=== PATIENT | male | born 1950 | race Caucasian/White ===

== ENCOUNTER 2018-03-01 14:50 | Outpatient (CLI) | payer OTHER, BC ==
[~2018-03-01] VITALS: Ht 182.9 cm; Wt 81.6 kg
[~2018-03-01 14:50] MED LIST: CHOL10003 PO; CLIN150C17 PO; COLC0.6T7 PO; DAPS25TA2 PO; HYDR-757 PO; TEST1.25 TOP; [UNRECOGNIZED DRUG - CODE] PO; [UNRECOGNIZED DRUG - CODE] PO; [UNRECOGNIZED DRUG - OTHER] PO
[2018-03-01] MEDS ORDERED: arthritis med PO (15:11)
[2018-03-05] MEDS ORDERED: ACHD5005 PO (15:10)
== END 2018-03-01 15:16 ==
LOC: PREOP 14:50
PROVIDERS: ATTEND Surgery
DX: Z01.818 Encounter for other preprocedural examination (principal); K40.90 Unilateral inguinal hernia, without obstruction or gangrene, not specified as recurrent; D17.9 Benign lipomatous neoplasm, unspecified

== ENCOUNTER 2018-03-05 10:49 | Day surgery (SDC) | payer OTHER, BC ==
[~2018-03-05] VITALS: Ht 182.9 cm; Wt 81.6 kg
[~2018-03-05 10:49] MED LIST changes: +arthritis med PO
[2018-03-05 10:57] VITALS: BP 130/75
[2018-03-05] MEDS ORDERED: ceFAZolin 2 GM IV Premixed 50 ML IV ONE (11:15)
--- NOTE | 2018-03-05 11:24 | Progress Note-Pre Operative ---
Pre-Operative Progress Note H&P Reviewed The H&P was reviewed, patient examined and no changes noted. Date Seen by Provider: Feb 18, 2018 Time Seen by Provider: 16:20 Date H&P Reviewed: Mar 05, 2018 Time H&P Reviewed: 11:23 Pre-Operative Diagnosis: Bilateral Inguinal herniae. Lipoma, nape of neck YAMILETH JOSEPH MD Mar 05, 2018 11:24 am
[2018-03-05] MEDS ORDERED: BUP/EPI 0.5% 1:200,000 (SENSORCAINE) 30 ML VIAL ONE (11:31)
[2018-03-05 11:47] LABS: BASOPHILS % (AUTO) 0 % (0-10); EOSINOPHILS # (AUTO) 0.2 10^3/uL (0.0-0.3); EOSINOPHILS % (AUTO) 4 % (0-10); HEMATOCRIT 44 % (40-54); HEMOGLOBIN 14.7 G/DL (13.3-17.7); LYMPHOCYTES % (AUTO) 19 % (12-44); MEAN CORPUSCULAR HEMOGLOBIN 33 PG (25-34); MEAN CORPUSCULAR HGB CONC 34 G/DL (32-36); MEAN CORPUSCULAR VOLUME 97 FL (80-99); MONOCYTES # (AUTO) 0.6 X 10^3 (0.0-1.0); MONOCYTES % (AUTO) 11 % (0-12); NEUTROPHILS # (AUTO) 3.4 X 10^3 (1.8-7.8); NEUTROPHILS % (AUTO) 66 % (42-75); PLATELET COUNT 157 10^3/uL (130-400); RED BLOOD COUNT 4.49 10^6/uL (4.35-5.85); RED CELL DISTRIBUTION WIDTH 13.3 % (10.0-14.5); WHITE BLOOD COUNT 5.2 10^3/uL (4.3-11.0)
[2018-03-05] MEDS ORDERED: ONDANSETRON 4 MG/2 ML (SDV) Z0FRAN ONE (11:47)
[2018-03-05] MEDS ORDERED: proPOfol 200 MG/20 ML (DIPRIVAN) VIAL IV ONE (11:47)
[2018-03-05] MEDS ORDERED: DEXAMETHASONE 10 MG/ML (DECADRON) 1 ML VIAL ONE (11:47)
[2018-03-05] MEDS ORDERED: LIDOCAINE PF 2% 5 ML (XYLOCAINE) VIAL ONE (11:47)
[2018-03-05] MEDS ORDERED: SEVOFLURANE (ULTANE) 15 ML INHAL SOLN ONE ×13 (11:48→15:08)
[2018-03-05] MEDS ORDERED: MIDAZOLAM 2 MG/2 ML (VERSED) VIAL ONE (11:48)
[2018-03-05] MEDS ORDERED: fentaNYL INJECTION 250 MCG/5 ML AMP ONE (11:48)
[2018-03-05] MEDS ORDERED: ROCURONIUM 10 MG/ML 5 ML SYRINGE IV ONE ×2 (11:48→14:43)
[2018-03-05] MEDS ORDERED: LIDOCAINE JELLY 2% (XYLOCAINE) 5 ML TUBE ONE (11:54)
[2018-03-05] MEDS: LACTATED RINGERS 1,000 ML IV PRN ×3 (11:59→16:03)
[2018-03-05] MEDS ORDERED: LEFL20TA18 PO (12:12)
[2018-03-05] MEDS ORDERED: fentaNYL INJECTION 100 MCG/2 ML AMP ONE (13:06)
[2018-03-05] MEDS ORDERED: MEPERIDINE (DEMEROL) INJ 50 MG/ML IVP PRN (14:45)
[2018-03-05] MEDS ORDERED: ONDANSETRON 4 MG/2 ML (SDV) Z0FRAN IVP PRN (14:45)
[2018-03-05] MEDS ORDERED: diphenhydrAMINE 50 MG/ML INJ (BENADRYL) ONE (14:48)
--- NOTE | 2018-03-05 15:09 | Operative Report ---
Operative Report Date of Procedure/Surgery Mar 05, 2018 Surgeon (s) YAMILETH JOSEPH MD Academic Vice President (s): n/a Post-Operative Diagnosis same Procedure Performed 1. Robotic assisted repair of bilateral inguinal hernia with mesh 2. Excision of 6 cm intermuscular lipomanape of neck Description of Procedure Anesthesia Type: General Estimated blood loss (mL): Minimal Specimen(s) collected/removed Hernia contents. Lipoma from the Neck Description of the Procedure Indication for the procedures: This gentleman initially presented with the large , symptomatic right inguinal hernia. Clinical examination confirmed a contralateral, smaller hernia as well. Therefore, he was offered repair of both herniae using minimally invasive technique with robotic assistance and mesh reinforcement. During the visit, he requested excision of a symptomatic lipoma over the nape of his neck. I agreed to do so. Informed consent was obtained after reviewing the details of the operation and complications of hematoma, infection of the mesh and recurrence of the hernia. Description of the procedures: He was placed supine on the operative table and general anesthesia induced using an endotracheal tube. A gram of Ancef was administered intravenously as prophylaxis against wound infection. Sequential compression devices were placed around his legs, to minimize the risk of venous thrombosis. A Gillespie catheter was placed to decompress the bladder during surgery. It was removed at the end of the operation. 1. Robotic assisted repair of bilateral inguinal herniae: Abdomen was prepared and draped in the usual sterile manner. A supraumbilical incision was made and pneumoperitoneum established using a Veress needle. Intra-abdominal pressure was maintained at 15 mmHg, using carbon dioxide insufflation. A 12 mm trocar was placed and anatomy visualized using the high definition, 3-dimensional laparoscope, associated with da Deena system. A large hernia was identified on the right side of the smaller direct hernia on the left side. Under direct view, I placed an 8 mm trocar over each side of the abdomen and the patient was turned into steep Trendelenburg position, to displace loops of bowel out of the pelvis. The robotic system was then docked in place. I began the dissection on the right side. Peritoneum was incised laterally, entering the pre-peritoneal space. The hernia contents were reduced completely and removed at the end of the operation. Transversalis fascia was rather lax and therefore approximated using 20V LOC sutures with the robotic assistance, without constricting the cord structures. A pre-made polypropylene mesh measuring 16 x 10 cm in size was used for reinforcement. It was secured to Greg's ligament and the anterior abdominal musculature with 2-0 Vicryl sutures with the robotic assistance. Peritoneum was reconstituted using a 20V LOC suture using robotic assistance. On the left side, the hernia mainly contained extraperitoneal fat/lipoma of the cord, which was reduced from the inguinal canal. It pre-made medium sized polypropylene mesh measuring 13 x 8 cm was used for reinforcement. It was secured to Greg's ligament and the anterior abdominal musculature using a 2-0 Vicryl suture. The peritoneum was then reconstituted using a 20V LOC suture with robotic assistance. Pneumoperitoneum was deflated and the fascia over the supraumbilical incision closed using #1 Vicryl. Skin incisions were closed using 4-0 Vicryl, in a subcuticular fashion. 0.5 percent Marcaine with epinephrine was infiltrated along the incisions both preemptively and at the conclusion of the operation. 2. Excision of inter-muscular lipomanape of neck: The patient was placed in left lateral decubitus position and his pressure areas were padded and protected. After establishing preemptive analgesia using 0.5 percent Marcaine with epinephrine, a 6 cm transverse incision was made and the lipoma, which appeared to be intermuscular in nature excised from the muscle layers. Hemostasis was achieved using ligaclips and minimal use of cautery. The area was irrigated with saline and the incision closed using 3-0 Vicryl for the subcutaneous tissue and 4-0 Vicryl for skin, in a subcuticular fashion. He tolerated the procedures well, was turned supine and extubated and taken to the recovery room in a stable condition. Findings of the Procedure see op report Allergies and Home Medications Allergies Coded Allergies: No Known Drug Allergies (Unverified , 02/20/14) Home Medications Leflunomide 20 Mg Tablet, 20 MG PO DAILY, (Reported) Patient Home Medication List Home Medication List Reviewed: Yes YAMILETH JOSEPH MD Mar 05, 2018 3:09 pm
[2018-03-05] MEDS ORDERED: ACHD5005 PO (15:10)
--- NOTE | 2018-03-05 15:11 | Discharge Inst-Simple/Standard ---
Discharge Inst-Standard Discharge Medications New, Converted or Re-Newed RX: RX on Chart Patient Instructions/Follow Up Plan of Care/Instructions/FU: Dressings off in 48 hours. Follow-up in a month Activity as Tolerated: No Goal: No lifting over 10 pounds Discharge Diet: No Restrictions YAMILETH JOSEPH MD Mar 05, 2018 3:11 pm
[2018-03-05] MEDS: morphine INJ 10 MG/ML 1ML (SYR OR VIAL) IVP PRN ×2 (15:34→15:40)
--- NOTE | 2018-03-05 15:45 | Anesthesia-General Post-Op ---
General Patient Condition Mental Status/LOC: Same as Preop Cardiovascular: Satisfactory Nausea/Vomiting: Absent Respiratory: Satisfactory Pain: Controlled Complications: Absent Post Op Complications Complications None Follow Up Care/Instructions Patient Instructions None needed. Anesthesia/Patient Condition Patient Condition Patient is doing well, no complaints, stable vital signs, no apparent adverse anesthesia problems. MART SÁNCHEZ DO Mar 05, 2018 15:45
[2018-03-05] MEDS ORDERED: HYDROmorphone 1 MG/ML (DILAUDID) 1 ML SYRINGE ONE (15:48)
[2018-03-05] MEDS ORDERED: HYDROmorphone 1 MG/ML (DILAUDID) 1 ML SYRINGE IV PRN (16:00)
[2018-03-05 16:15] VITALS: BP 157/96
[2018-03-05 16:45] VITALS: BP 153/89
[2018-03-05] MEDS ORDERED: HYDROcodone/APAP 5 MG/325 MG (LORTAB) TAB ONE (16:59)
[2018-03-05 17:00] VITALS: BP 153/89
[2018-03-05] MEDS ORDERED: HYDROcodone/APAP 5 MG/325 MG (LORTAB) TAB PO ONE (17:00)
[2018-03-05 17:15] VITALS: BP 144/88
[2018-03-05 18:11] VITALS: BP 144/88
== END 2018-03-05 18:10 | disposition home or self-care (01) ==
LOC: SDC 10:49
PROVIDERS: ATTEND Surgery
DX: K40.20 Bilateral inguinal hernia, without obstruction or gangrene, not specified as recurrent (principal); D17.0 Benign lipomatous neoplasm of skin and subcutaneous tissue of head, face and neck; Z87.891 Personal history of nicotine dependence
CPT/HCPCS: 36415; 85025; 87081

== ENCOUNTER → 2022-09-05 | Outpatient (CLI) | payer MEDICARE, OTHER ==
[~2022-09-05] MED LIST changes: +ACHD5005 PO; -CLIN150C17 PO; +CLIN150C20 PO; +HYDR-4226 PO; -HYDR-757 PO; +LEFL20TA18 PO
--- NOTE | 2022-09-05 16:07 | Diagnostic Imaging Report ---
INDICATION: Bilateral hip pain. TECHNIQUE: 5 views. FINDINGS: The SI joints and pubic symphysis are in good alignment. Mild arthritic changes noted along the inferior aspect of the SI joints. Femoral heads show normal articulations bilaterally. There is moderate narrowing of the left hip joint space with sclerotic change and mild hypertrophic change. Right hip appears normal. 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 Dictated by: Dictated on workstation # [id number]
== END ==
LOC: RAD 12:34
PROVIDERS: ATTEND Family Medicine
DX: M16.12 Unilateral primary osteoarthritis, left hip (principal); M46.1 Sacroiliitis, not elsewhere classified; M25.551 Pain in right hip
CPT/HCPCS: 73523

== ENCOUNTER 2022-09-29 05:32 | Outpatient (CLI) | payer MEDICARE, OTHER ==
[~2022-09-29] VITALS: Ht 185.4 cm; Wt 73.9 kg
== END 2022-09-29 13:49 | disposition home or self-care (01) ==
LOC: PREOP 05:32
PROVIDERS: ATTEND Internal Medicine
DX: Z01.818 Encounter for other preprocedural examination (principal); Z12.11 Encounter for screening for malignant neoplasm of colon

== ENCOUNTER 2022-10-06 07:51 | Day surgery (SDC) | payer MEDICARE, OTHER ==
--- NOTE | 2022-09-29 06:29 | HISTORY AND PHYSICAL ---
COLONOSCOPY HISTORY AND PHYSICAL HISTORY OF PRESENT ILLNESS: The patient is a 71-year-old white male referred by Dr. Cespedes for screening colonoscopy. I had last performed colonoscopy on him 10 years ago, at which time he had one diminutive tubular adenoma removed. He seems to be of average risk. He is not aware of any family history for colon cancer. He has noted some bowel habit change. He has been having 1 or 2 loose stools per day with little more urgency, but again without evidence for overt bleeding. He also with this reports a 20-pound weight loss, unintentional. PAST SURGICAL HISTORY: Significant for bilateral inguinal herniorrhaphy in February of 2018. This was followed by left abdominal shingles radiating around to the back, for which he still has some mild postherpetic neuralgia symptoms. He is not taking any medication for this. PAST MEDICAL HISTORY: Significant for hypogonadism for which he is on AndroGel for replacement. FAMILY HISTORY: He is not aware of any family history of GI tract malignancy or inflammatory bowel disease. SOCIAL HISTORY: He is retired. Previous Cook at [employer]. He is with no past smoking history and no significant alcohol intake. REVIEW OF SYSTEMS: CONSTITUTIONAL: Denies night sweats, chills or fever, but does have unexplained weight loss of 20 pounds. CARDIAC: Denies chest pain, orthopnea, PND, pedal edema or syncope. PULMONARY: Denies cough, wheezing or shortness of breath. GASTROINTESTINAL: As noted in the HPI. PHYSICAL EXAMINATION: GENERAL: Reveals a white male who appeared to be in no acute distress. VITAL SIGNS: Weight 163 pounds, blood pressure 104/70. HEENT: Unremarkable. CHEST: Clear to auscultation. CARDIOVASCULAR: Reveals regular rate and rhythm without murmur, S3 or S4. ABDOMEN: Soft, supple without mass, organomegaly or tenderness. EXTREMITIES: Reveal no cyanosis, clubbing or edema. ASSESSMENT AND PLAN: The patient has been set up for screening colonoscopy. Due to some bowel habit change; however, we will need to obtain a biopsy from the rectum even if there are no visual abnormalities to rule out microscopic colitis. Prep instructions were given and questions were answered. Electronic medical record and Dr. Cespedes's notes were reviewed. Thank you for the referral of this pleasant gentleman. Job ID: [id number] DocumentID: [id number] Dictated Date: 09/27/2022 17:07:26 Ceiling Installer Date: 09/27/2022 17:37:00 Dictated By: VIVIAN BOOGIE MD MTDD
[~2022-10-06] VITALS: Ht 185.4 cm; Wt 73.9 kg
[2022-10-06 08:01] VITALS: BP 123/80
[2022-10-06] MEDS ORDERED: LACTATED RINGERS 1,000 ML IV STA (08:01)
[2022-10-06 08:20] VITALS: BP 128/77
--- NOTE | 2022-10-06 08:29 | Pre-Op Note & Conscious Sedat ---
Pre-Operative Progress Note Date H&P Reviewed: Oct 06, 2022 Time H&P Reviewed: 08:28 History & Physical: H&P Reviewed, Patient Examed, No changes noted Pre-Op Diagnosis: screening Conscious Sedation Pre-Proced ASA Score 2 For ASA 3 and 4: Consider anesthesia and medical clearance. Also, for patients with a history of failed moderate sedation consider anesthesia. Airway Lungs Heart ASA score ASA 1: a normal healthy patient ASA 2: a patient with a mild systemic disease (mid diabetes, controlled hypertension, obesity ASA 3: a patient with a severe systemic disease that limits activity (angina, COPD, prior Myocardial infarction) ASA 4: a patient with an incapacitating disease that is a constant threat to life (CHF, renal failure) ASA 5: a moribund patient not expected to survive 24 hrs. (ruptured aneurysm) ASA 6: a declared brain- patient whose organs are being harvested. For emergent operations, add the letter E after the classification Mallampati Classification Grade 1 Sedation Plan Analgesia, Amnesia, Plan communicated to team members, Discussed options with patient/fam, Discussed risks with patient/fam The patient is an appropriate candidate to undergo the planned procedure, sedation, and anesthesia. The patient immediately re-assessed prior to indication. VIVIAN BOOGIE MD Oct 06, 2022 08:29
[2022-10-06] MEDS ORDERED: PROPOFOL INJECTION 50 ML IV ONE (08:55)
[2022-10-06] MEDS ORDERED: MIDAZOLAM 2 MG/2 ML (VERSED) VIAL ONE (08:55)
[2022-10-06 09:30] VITALS: BP 116/62
--- NOTE | 2022-10-06 09:32 | Progress Note-Post Operative ---
Post-Procedure Note Physician (s)/Marker Maker (s) Physician VIVIAN BOOGIE MD Pre-Procedure Diagnosis Pre-Procedure Diagnosis: screening Post-Procedure Diagnosis Post-operative diagnosis: Prior to undergoing colonoscopy digital rectal evaluation was performed. Anal sphincter tone was normal and the perianal reflexes intact. Prostate was unremarkable on digital inspection and no abnormalities noted on digital inspection anal canal or distal rectal vault. The colonoscope was then inserted into the rectum and under direct visualization advanced to the cecum. The cecum was identified by identification of the ileocecal valve and cecal strap. Photographic documentation was obtained. Careful inspection was made as the colonoscope was withdrawn. Quality the prep was good. Findings: There was no evidence for internal or external hemorrhoids and the rectum was unremarkable on visual inspection. Patient was reporting diarrhea and had some weight loss so biopsy was obtained from the rectum to evaluate for underlying microscopic colitis. Mild to moderate diverticular disease confined to the sigmoid colon was present without evidence for diverticulitis. No other sigmoid colonic abnormalities are appreciated. The descending colon splenic flexure transverse colon hepatic flexure and ascending colon were unremarkable. On the upper lip of the ileocecal valve was a 3 to 4 mm sessile polyp it was photographed and biopsied and ablated with hot forceps with no blood loss. The cecum was unremarkable. A/P 1. #1 mild diverticular disease confined sigmoid colon is present without evidence for diverticulitis. A biopsy from the rectum was obtained and submitted for histopathology to evaluate for underlying microscopic colitis considering reports of diarrhea no evidence for inflammation on gross inspection was noted throughout the colon. 1 small sessile polyp was removed via hot forceps from the upper lip revealed cecal valve. As long as there are no surprises on histopathology report would just advocate consideration for repeat screening colonoscopy in 10 years. CC: Dr. Myranda CORONA MD. VIVIAN BOOGIE MD Oct 06, 2022 09:32
[2022-10-06 09:35] VITALS: BP 124/66
[2022-10-06 09:56] VITALS: BP 141/77
--- NOTE | 2022-10-06 11:48 | Anesthesia-General Post-Op ---
MAC Patient Condition Mental Status/LOC: Same as Preop Cardiovascular: Satisfactory Nausea/Vomiting: Absent Respiratory: Satisfactory Pain: Controlled Complications: Absent Post Op Complications Complications None Follow Up Care/Instructions Patient Instructions None needed. Anesthesiology Discharge Order Discharge Order Patient is doing well, no complaints, stable vital signs, no apparent adverse anesthesia problems. No complications reported per nursing. TRESSA NORWOOD CRNA Oct 06, 2022 11:48
== END 2022-10-06 10:15 | disposition home or self-care (01) ==
LOC: ENDO 07:51
PROVIDERS: ATTEND Internal Medicine
DX: Z12.11 Encounter for screening for malignant neoplasm of colon (principal); D12.0 Benign neoplasm of cecum; K57.30 Diverticulosis of large intestine without perforation or abscess without bleeding; Z87.891 Personal history of nicotine dependence